=== PATIENT | female | born 1995 | race Caucasian/White ===

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

== ENCOUNTER 2017-03-11 20:39 | Emergency (ER) | payer OTHER ==
[~2017-03-11] VITALS: Ht 172.7 cm; Wt 88.1 kg
--- NOTE | 2017-03-11 21:22 | PHYS DOC ---
General Chief Complaint: NAUSEA/VOMITING/DIARRHEA Stated Complaint: ABD PAIN Time Seen by MD: 20:44 Source: patient Exam Limitations: no limitations Problems: History of Present Illness Initial Comments Patient is a 22-year-old female who comes to the ED complaining of lower abdominal discomfort and breast tenderness. Patient states that for the past several days she's had intermittent nausea but has had no vomiting or diarrhea. She has developed lower abdominal discomfort with urinary frequency and no dysuria or hematuria noted. She denies any vaginal discharge no dyspareunia all of her discomfort is located suprapubic no adnexal pain. She is unable to tell me with extensive questioning when her last menstrual period was. She is at this time 2 para 1 as her urine test is positive here in the emergency department. She does not take vitamins and has no mandrel puller as her last occurred during her teenage years. She had preeclampsia and her initial no other risks and no complications at-induced section due to her preeclamptic status. Appetite is intact no fever chills sweats or myalgias no flank discomfort patient admits to sexual activity with 2 individuals recently and is uncertain as to who may be a father. Timing/Duration: 24 hours Severity: mild Modifying Factors: worse with eating Associated Symptoms: malaise, nausea/vomiting Allergies: Coded Allergies: No Known Drug Allergies (Unverified , 03/11/17) Past Medical History Medical History: no pertinent history (preeclampsia, asthma) Surgical History: other ( section) Para: 1 : 2 LMP (Females 10-50): unknown Social History Smoker: non-smoker Alcohol: none Drugs: none Review of Systems Constitutional: denies chills, denies diaphoresis, denies fever, denies malaise Respiratory: denies cough, denies shortness of breath, denies wheezing Cardiovascular: denies chest pain, denies palpitations, denies syncope Gastrointestinal: see HPI Genitourinary: see HPI Musculoskeletal: denies back pain, denies joint swelling, denies neck pain Psychiatric/Neurological: denies headache, denies numbness, denies paresthesia Hematologic/Lymphatic: denies blood clots, denies easy bleeding, denies easy bruising Physical Exam General Appearance: WD/WN, no apparent distress Eyes: bilateral eye normal inspection, bilateral eye PERRL, bilateral eye EOMI ( and) Ear, Nose, Throat: hearing grossly normal, normal ENT inspection, normal pharynx Neck: non-tender, supple Respiratory: normal breath sounds, no respiratory distress Cardiovascular: normal peripheral pulses, regular rate, rhythm Gastrointestinal: soft (mild suprapubic tenderness no rebound guarding or masses noted, negative McBurney, negative Hess, bowel sounds normal uterus nonpalpable) Rectal: deferred Back: no CVA tenderness, no vertebral tenderness Extremities: normal range of motion, non-tender, normal inspection, no pedal edema Neurologic/Psychiatric: belt picker II-XII nml as tested, no motor/sensory deficits, alert, normal mood/affect, oriented x 3 Skin: normal color, warm/dry Orders, Labs, Meds Urine test is positive Urinalysis grossly positive for products of infection. I discussed findings with the patient and encouraged her to begin taking vitamins. Due to her high risk in the past I encouraged her to follow-up with OB as soon as possible. Contact information was given to her for Dr. Morelos and she was advised to call Monday to schedule next available appointment. Signs and symptoms to monitor and watch for were discussed and indications for urgent return to the department for also discussed. I answered her extensive questions and she expressed agreement and understanding of the treatment plan. See departure. Departure Time of Disposition: 21:49 Disposition: 01 HOME, SELF-CARE Diagnosis: incidental, UTI Condition: GOOD Patient Instructions: Diet - Hyperemesis Gravidarum, Hyperemesis Gravidarum, Medicines During Additional Instructions: Please review the patient education materials given by ED staff. Aggressive hydration with Gatorade and water. vitamins daily, take with food. Prescription: Zofran ODT, Macrobid You will need a follow-up with an mandrel puller. You may choose to follow-up with Dr. Morelos: ED staff will provide you with his contact information in written form. Call Monday to schedule next available appointment. Return to ED with new or changing symptoms. ROSA HUI DO Mar 11, 2017 21:22
[2017-03-11 21:43] LABS: BACTERIA,URINE FEW /HPF (0-FEW); BILIRUBIN,URINE NEG (NEG); CLARITY,URINE CLOUDY; COLOR,URINE YELLOW; GLUCOSE,URINE NEG (NEG); NITRITE,URINE NEG (NEG); SQUAMOUS EPITHELIAL CELL,UR OCC /LPF; UROBILINOGEN,URINE 0.2 mg/dL (0.2 mg/dL); WBC,URINE 20-40 /HPF (0-4)
[2017-03-11] MEDS ORDERED: ONDA4TAB10 PO (21:48)
[2017-03-11] MEDS ORDERED: NITR100C62 PO (21:48)
[2017-03-11] MEDS ORDERED: NITROFURANTOIN MONOHYD/M-CRYST 100 MG CAPSULE. PO ONE ×2 (21:55→22:15)
[2017-03-11] MEDS ORDERED: ONDANSETRON 4MG ODT 4TABLET STARTPACK. PO ONE (22:00)
[2017-03-11] MEDS ORDERED: ONDANSETRON ODT 4 MG TAB.RAPDIS PO ONE (22:00)
[2017-03-11 22:10] VITALS: BP 120/70
== END 2017-03-11 22:15 | disposition home or self-care (01) ==
LOC: ER 20:39
DX: N39.0 Urinary tract infection, site not specified (principal); J45.909 Unspecified asthma, uncomplicated; Z33.1 Pregnant state, incidental; Z98.890 Other specified postprocedural states
CPT/HCPCS: 81001; 81025; 87086; 99284; Q0162

== ENCOUNTER 2017-05-05 16:54 | Emergency (ER) | payer OTHER ==
[~2017-05-05] VITALS: Ht 172.7 cm; Wt 88.5 kg
[~2017-05-05 16:54] MED LIST: NITR100C62 PO; ONDA4TAB10 PO
[2017-05-05] MEDS ORDERED: ONDANSETRON ODT 4 MG TAB.RAPDIS ONE (17:20)
--- NOTE | 2017-05-05 17:20 | PHYS DOC ---
Past History Past Medical History: Asthma Past Surgical History: No Surgical History Alcohol Use: None Drug Use: None Adult General Chief Complaint Chief Complaint: VOMITING IN HPI HPI Patient is a 22 year old F who presents with nausea and vomiting during . Kelsey is 13 weeks along and his had multiple episodes of nausea and vomiting. She has been seen by her OB but was unable to be seen today in the clinic. She has been taking Zofran for nausea but is out of her medications currently. She denies pain or other symptoms. She has no other associated symptoms. She has no other exacerbating or alleviating factors. Review of Systems Review of Systems Constitutional: Denies fever or chills [] Eyes: Denies change in visual acuity, redness, or eye pain [] HENT: Denies nasal congestion or sore throat [] Respiratory: Denies cough or shortness of breath [] Cardiovascular: No additional information not addressed in HPI [] GI: Denies abdominal pain,bloody stools or diarrhea [] : Denies dysuria or hematuria [] Musculoskeletal: Denies back pain or joint pain [] Integument: Denies rash or skin lesions [] Neurologic: Denies headache, focal weakness or sensory changes [] Endocrine: Denies polyuria or polydipsia [] All other systems were reviewed and found to be within normal limits, except as documented in this note. Family History Family History No pertinent family history was reported Current Medications Current Medications Medications reviewed Allergies Allergies Allergies Coded Allergies Type Severity Reaction Last Updated Verified No Known Drug Allergies 05/05/17 No Physical Exam Physical Exam Constitutional: Well developed, well nourished, no acute distress, non-toxic appearance. [] HENT: Normocephalic, atraumatic, bilateral external ears normal, oropharynx moist, no oral exudates, nose normal. [] Eyes: PERRLA, EOMI, conjunctiva normal, no discharge. [] Neck: Normal range of motion, no tenderness, supple, no stridor. [] Cardiovascular:Heart rate regular rhythm, Lungs & Thorax: Bilateral breath sounds clear to auscultation [] Abdomen: Bowel sounds normal, soft, no tenderness, no masses, no pulsatile masses. [] Skin: Warm, dry, no erythema, no rash. [] Back: No tenderness, no CVA tenderness. [] Extremities: No tenderness, no cyanosis, no clubbing, ROM intact, no edema. [] Neurologic: Alert and oriented X 3, normal motor function, normal sensory function, no focal deficits noted. [] Psychologic: Affect normal, judgement normal, mood normal. [] Current Patient Data Vital Signs Vital Signs Date Time Temp Pulse Resp B/P (MAP) Pulse Ox O2 Delivery O2 Flow Rate FiO2 05/05/17 17:11 98.2 114 16 100 Room Air EKG EKG [] Radiology/Procedures Radiology/Procedures [] Course & Med Decision Making Course & Med Decision Making Pertinent Labs and Imaging studies reviewed. (See chart for details) Her symptoms did improve with ODT Zofran. She was able tolerate oral fluids prior to discharge. Dragon Disclaimer Dragon Disclaimer This electronic medical record was generated, in whole or in part, using a voice recognition dictation system. Departure Departure: Impression: Primary Impression: Hyperemesis gravidarum Disposition: HOME, SELF-CARE Condition: STABLE Referrals: PCP,NO (PCP) Patient Instructions: Hyperemesis Gravidarum Additional Instructions: Kelsey was seen in the emergency department for nausea and vomiting. No emergency medical condition was found on history or physical exam. Her symptoms are treated and she was able to tolerate oral fluids. She was given a prescription for nausea medication and advised follow-up with her primary care doctor as soon as possible for further management. Scripts Ondansetron (ZOFRAN ODT) 4 Mg Tab.rapdis 1 TAB SL Q8HRS, #15 TAB Prov: SILVIA MARINO MD 05/05/17 SILVIA MARINO MD May 05, 2017 17:20
[2017-05-05] MEDS ORDERED: ONDANSETRON ODT 4 MG TAB.RAPDIS PO ONE (17:30)
[2017-05-05] MEDS ORDERED: ONDA4TAB10 SL (18:02)
[2017-05-05 18:08] VITALS: BP 134/88
== END 2017-05-05 18:09 | disposition home or self-care (01) ==
LOC: ER 16:54
DX: O21.0 Mild hyperemesis gravidarum (principal); O99.511 Diseases of the respiratory system complicating pregnancy, first trimester; J45.909 Unspecified asthma, uncomplicated; Z3A.13 13 weeks gestation of pregnancy
CPT/HCPCS: 99283; Q0162

== ENCOUNTER → 2017-06-06 | Outpatient (CLI) | payer OTHER ==
[~2017-06-06] MED LIST changes: +ONDA4TAB10 SL
--- NOTE | 2017-06-06 14:13 | RAD ---
Indication: survey. Technique: Grayscale, color Doppler and spectral waveform ultrasound images of the pelvis. Comparison: None Findings: The cervix measures 5.2 cm gland and is within normal limits. Single intrauterine is noted in cephalic presentation. Placenta is anterior wall in origin. The biparietal diameter measures 4.1 cm corresponding to gestation age of 8 weeks 3 day. The head circumference measures 15.6 cm corresponding gestational age of 18 weeks 3 days. Femoral length measures 2.7 cm corresponding was a suspicion a of 18 weeks 2 days. Abdominal circumference measures 12.4 cm corresponding to gestation age of 18 weeks 0 days. Amniotic fluid index measures 15.1 cm and is within normal limits. Three-vessel cord is visualized. Bladder, stomach, spine, upper extremities, lower extremities, kidneys, nose, lips, four-chamber heart are the visualized. Cardiac activity is demonstrated at the rate of 147 bpm. Estimated weight of 229 g. Estimated due date 11/11/2017. Impression: Single viable intrauterine with gestational age of 18 weeks 2 days and due date of 11/05/2017.
== END | disposition home or self-care (01) ==
LOC: US 10:54
DX: Z34.92 Encounter for supervision of normal pregnancy, unspecified, second trimester (principal); Z3A.18 18 weeks gestation of pregnancy
CPT/HCPCS: 76805

== ENCOUNTER 2017-11-25 18:52 | Emergency (ER) | payer OTHER ==
[~2017-11-25] VITALS: Ht 172.7 cm; Wt 92.0 kg
[2017-11-25 18:52] VITALS: BP 153/92
--- NOTE | 2017-11-25 19:18 | PHYS DOC ---
Past History Past Medical History: Asthma Past Surgical History: No Surgical History Alcohol Use: None Drug Use: None Adult General Chief Complaint Chief Complaint: SKIN RASH/ABSCESS HPI HPI 22-year-old female presents with rash. The patient was at her mom's house 2 days ago was out in the backyard. Her father mentioned that he got poison perla several days ago. Later on that evening she started to notice some small bumps on her upper thighs. By the time she woke up the next morning she had large patches of vesicular rash on her thighs and lower legs and arms. It is intensely pruritic and the vesicles are draining serous fluid. Patient has been trying calamine lotion. She has a known high sensitivity to poison perla. Denies any difficulty breathing. She does not have any lesions on her face. There are couple small areas on her neck. Her abdomen and buttocks which were covered do not have any lesions. She recently had a baby, but she is not breast-feeding. She is not diabetic. Review of Systems Review of Systems Constitutional: Denies fever or chills [] Eyes: Denies change in visual acuity, redness, or eye pain [] HENT: Denies nasal congestion or sore throat [] Respiratory: Denies cough or shortness of breath [] Cardiovascular: No additional information not addressed in HPI [] GI: Denies abdominal pain, nausea, vomiting, bloody stools or diarrhea [] : Denies dysuria or hematuria [] Musculoskeletal: Denies back pain or joint pain [] Integument: Rash [] Neurologic: Denies headache, focal weakness or sensory changes [] Endocrine: Denies polyuria or polydipsia [] All other systems were reviewed and found to be within normal limits, except as documented in this note. Allergies Allergies Allergies Coded Allergies Type Severity Reaction Last Updated Verified No Known Drug Allergies 05/05/17 No Physical Exam Physical Exam Constitutional: Well developed, well nourished, no acute distress, non-toxic appearance. [] HENT: Normocephalic, atraumatic, bilateral external ears normal, oropharynx moist, no oral exudates, nose normal. [] Eyes: PERRLA, EOMI, conjunctiva normal, no discharge. [] Neck: Normal range of motion, no tenderness, supple, no stridor. [] Cardiovascular:Heart rate regular rhythm, no murmur [] Lungs & Thorax: Bilateral breath sounds clear to auscultation [] Abdomen: Bowel sounds normal, soft, no tenderness, no masses, no pulsatile masses. [] Skin: Diffuse erythematous patches with vesicular lesions on the her thighs, lower legs, arms, and neck. The vesicles are weeping a serous fluid. [] Back: No tenderness, no CVA tenderness. [] Extremities: No tenderness, no cyanosis, no clubbing, ROM intact, no edema. [] Neurologic: Alert and oriented X 3, normal motor function, normal sensory function, no focal deficits noted. [] Psychologic: Affect normal, judgement normal, mood normal. [] EKG EKG [] Radiology/Procedures Radiology/Procedures [] Course & Med Decision Making Course & Med Decision Making Pertinent Labs and Imaging studies reviewed. (See chart for details) We will give the patient 125 Solu-Medrol in the ED and an Rx for 14 days of prednisone. [] Dragon Disclaimer Dragon Disclaimer This electronic medical record was generated, in whole or in part, using a voice recognition dictation system. Departure Departure: Referrals: PCP,NO (PCP) GUS RAUSCH DO Nov 25, 2017 19:18
[2017-11-25] MEDS ORDERED: methylPREDNISolone SOD SUCC PF 125 MG/2 ML VIAL. IM ONE (19:30)
[2017-11-25] MEDS ORDERED: PRED-220 PO (19:30)
== END 2017-11-25 19:40 | disposition home or self-care (01) ==
LOC: ER 18:52
DX: L98.8 Other specified disorders of the skin and subcutaneous tissue (principal); R21 Rash and other nonspecific skin eruption; L29.9 Pruritus, unspecified; J45.909 Unspecified asthma, uncomplicated
CPT/HCPCS: 96372; 99283; J2930

== ENCOUNTER 2018-06-24 18:30 | Emergency (ER) | payer OTHER ==
[~2018-06-24] VITALS: Ht 172.7 cm; Wt 92.0 kg
[~2018-06-24 18:30] MED LIST changes: +PRED-220 PO
[2018-06-24 18:45] VITALS: BP 149/91
[2018-06-24] MEDS ORDERED: predniSONE 20 MG TABLET PO ONE (19:00)
[2018-06-24] MEDS ORDERED: PRED-220 PO (19:09)
--- NOTE | 2018-06-24 19:09 | PHYS DOC ---
Past History Past Medical History: Asthma Past Surgical History: No Surgical History Alcohol Use: None Drug Use: None Adult General Chief Complaint Chief Complaint: UPPER EXTREMITY INJURY HPI HPI 23-year-old female presents with left shoulder pain. The patient works on an as a midline at night. She was switched over to a much faster line yesterday and by the end of her shift she had left lateral shoulder pain with radiation down past her elbow and into her hands. She was unable to sleep on her left side due to a feeling of numbness going into her hands. She denies trauma. She did not fall. 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 She came in because she was concerned about the numbness feeling going into her fingers could be a sign of a more serious injury. She denies fever or chills. She has no previous shoulder injuries. Review of Systems Review of Systems Constitutional: Denies fever or chills [] Eyes: Denies change in visual acuity, redness, or eye pain [] HENT: Denies nasal congestion or sore throat [] Respiratory: Denies cough or shortness of breath [] Cardiovascular: No additional information not addressed in HPI [] GI: Denies abdominal pain, nausea, vomiting, bloody stools or diarrhea [] : Denies dysuria or hematuria [] Musculoskeletal: Left shoulder pain [] Integument: Denies rash or skin lesions [] Neurologic: Denies headache, focal weakness or sensory changes [] Endocrine: Denies polyuria or polydipsia [] All other systems were reviewed and found to be within normal limits, except as documented in this note. Allergies Allergies Allergies Coded Allergies Type Severity Reaction Last Updated Verified diphenhydramine Allergy Unknown 06/24/18 Yes Physical Exam Physical Exam Constitutional: Well developed, well nourished, no acute distress, non-toxic appearance. [] HENT: Normocephalic, atraumatic, bilateral external ears normal, oropharynx moist, no oral exudates, nose normal. [] Eyes: PERRLA, EOMI, conjunctiva normal, no discharge. [] Neck: Normal range of motion, no tenderness, supple, no stridor. [] Cardiovascular:Heart rate regular rhythm, no murmur [] Lungs & Thorax: Bilateral breath sounds clear to auscultation [] Abdomen: Bowel sounds normal, soft, no tenderness, no masses, no pulsatile masses. [] Skin: Warm, dry, no erythema, no rash. [] Back: No tenderness, no CVA tenderness. [] Extremities: No left shoulder appears superior compared right, tenderness in the supraspinatus distribution. Strength 5 out of 5, but with pain. The numbness symptoms are reproducible with palpation of the left first rib.[] Neurologic: Alert and oriented X 3, normal motor function, normal sensory function, no focal deficits noted. [] Psychologic: Affect normal, judgement normal, mood normal. [] Current Patient Data Vital Signs Vital Signs Date Time Temp Pulse Resp B/P (MAP) Pulse Ox O2 Delivery O2 Flow Rate FiO2 06/24/18 18:45 98.2 116 18 100 Room Air EKG EKG [] Radiology/Procedures Radiology/Procedures [] Course & Med Decision Making Course & Med Decision Making Pertinent Labs and Imaging studies reviewed. (See chart for details) The patient has been overuse strain of her left shoulder. Specifically I believe her first troponin is elevated and impinging on her brachial plexus. I will treat her with prednisone for 5 days. She has the next couple days off to rest. She is stable for discharge at this time. [] Dragon Disclaimer Dragon Disclaimer This electronic medical record was generated, in whole or in part, using a voice recognition dictation system. Departure Departure: Impression: Primary Impression: Left shoulder strain Disposition: 01 HOME, SELF-CARE Condition: STABLE Referrals: PCP,UNKNOWN (PCP) Patient Instructions: Shoulder Exercises, Generic, SportsMed Scripts Prednisone (PREDNISONE) 10 Mg Tablet 50 MG PO DAILY for inflammation for 4 Days, #20 TAB Prov: GUS RAUSCH DO 06/24/18 Problem Qualifiers Primary Impression: Left shoulder strain Encounter type: initial encounter Qualified Codes: S46.912A - Strain of unspecified muscle, fascia and tendon at shoulder and upper arm level, left arm , initial encounter GUS RAUSCH DO Jun 24, 2018 19:09
== END 2018-06-24 19:19 | disposition home or self-care (01) ==
LOC: ER 18:30
DX: S46.912A Strain of unspecified muscle, fascia and tendon at shoulder and upper arm level, left arm, initial encounter (principal); J45.909 Unspecified asthma, uncomplicated; Z88.8 Allergy status to other drugs, medicaments and biological substances; X50.9XXA Other and unspecified overexertion or strenuous movements or postures, initial encounter; Y93.89 Activity, other specified; Y92.89 Other specified places as the place of occurrence of the external cause; Y99.0 Civilian activity done for income or pay
CPT/HCPCS: 99283; J7512

== ENCOUNTER 2018-10-31 23:06 | Emergency (ER) | payer OTHER ==
[~2018-10-31] VITALS: Ht 172.7 cm; Wt 89.6 kg
[2018-10-31 23:06] VITALS: BP 138/92
[2018-11-01] MEDS ORDERED: SULF1TAB24 PO (00:12)
--- NOTE | 2018-11-01 00:12 | PHYS DOC ---
Past History Past Medical History: Asthma Past Surgical History: No Surgical History Alcohol Use: None Drug Use: None Adult General Chief Complaint Chief Complaint: SKIN RASH/ABSCESS [facility] HPI Patient is a 23-year-old female who presents with complaint of tender swollen area behind her ear that has been present for the last couple of days. Patient states that it scares her because she looked on the Internet and thought that it could be a tumor. She denies any fever. She denies any drainage from the area.[] Review of Systems Review of Systems Constitutional: Denies fever or chills [] Respiratory: Denies cough or shortness of breath [] Cardiovascular: No additional information not addressed in HPI [] GI: Denies abdominal pain, nausea, vomiting, bloody stools or diarrhea [] Integument: Positive tender swollen behind right ear[] Allergies Allergies Allergies Coded Allergies Type Severity Reaction Last Updated Verified diphenhydramine Allergy Unknown 06/24/18 Yes Physical Exam Physical Exam Constitutional: Well developed, well nourished, no acute distress, non-toxic appearance. [] HENT: Normocephalic, atraumatic, there is an area of swelling behind the right ear, nodular and tender, consistent with lymphadenitis. [] Neck: Normal range of motion, no tenderness, supple, no stridor. [] Cardiovascular:Heart rate regular rhythm, no murmur [] Lungs & Thorax: Bilateral breath sounds clear to auscultation [] EKG EKG [] Radiology/Procedures Radiology/Procedures [] Course & Med Decision Making Course & Med Decision Making Pertinent Labs and Imaging studies reviewed. (See chart for details) [] Dragon Disclaimer Dragon Disclaimer This electronic medical record was generated, in whole or in part, using a voice recognition dictation system. Departure Departure: Impression: Primary Impression: Lymphadenitis Disposition: 01 HOME, SELF-CARE Condition: STABLE Referrals: NON,STAFF (PCP) Patient Instructions: Cervical Adenitis Scripts Sulfamethoxazole/Trimethoprim (BACTRIM DS TABLET) 1 Each Tablet 1 TAB PO BID for infection, #20 TAB Prov: JUN HENDERSON Jr. DO 11/01/18 JUN HENDERSON Jr. DO Nov 01, 2018 00:12
[2018-11-01] MEDS ORDERED: SMZ/TMP 800/160MG TABLET. PO ONE (00:30)
== END 2018-11-01 00:42 | disposition home or self-care (01) ==
LOC: ER 23:06
DX: I88.9 Nonspecific lymphadenitis, unspecified (principal); J45.909 Unspecified asthma, uncomplicated; Z88.8 Allergy status to other drugs, medicaments and biological substances
CPT/HCPCS: 99283

== ENCOUNTER 2019-01-24 22:02 | Emergency (ER) | payer OTHER ==
[~2019-01-24] VITALS: Ht 170.2 cm; Wt 81.2 kg
[~2019-01-24 22:02] MED LIST changes: +SULF1TAB24 PO
[2019-01-24 22:05] VITALS: BP 135/80
[2019-01-24] MEDS ORDERED: PERM60CR12 TP (22:27)
[2019-01-24] MEDS ORDERED: METH4TAB2 PO (22:27)
--- NOTE | 2019-01-24 23:52 | PHYS DOC ---
Past History Past Medical History: Asthma, Hypertension, Other Past Surgical History: No Surgical History Alcohol Use: None Drug Use: None Adult General Chief Complaint Chief Complaint: SKIN RASH/ABSCESS HPI HPI Patient is a 23 YO F WITH CC OF SKIN RASH. PATIENT HAS RASH ON BOTH LEGS AND ARMS WELL. HAS BEEN WEEDING AND MOWING THINKS IT IS POISON BETO NO NEW EXPOSURES OTHERWISE NO CONTACTS WITH THE RASH IT IS VERY ITCHY Review of Systems Review of Systems Constitutional: Denies fever or chills [] Eyes: Denies change in visual acuity, redness, or eye pain [] HENT: Denies nasal congestion or sore throat [] Respiratory: Denies cough or shortness of breath [] Cardiovascular: No additional information not addressed in HPI [] GI: Denies abdominal pain, nausea, vomiting, bloody stools or diarrhea [] All other systems were reviewed and found to be within normal limits, except as documented in this note. Allergies Allergies Allergies Coded Allergies Type Severity Reaction Last Updated Verified diphenhydramine Allergy Unknown 06/24/18 Yes Physical Exam Physical Exam Constitutional: Well developed, well nourished, no acute distress, non-toxic appearance. [] HENT: Normocephalic, atraumatic, bilateral external ears normal, oropharynx moist, no oral exudates, nose normal. [] Eyes: PERRLA, EOMI, conjunctiva normal, no discharge. [] Neck: Normal range of motion, no tenderness, supple, no stridor. [] Skin: THERE IS MACULOPAPULAR RASH NOTED ON THE ANTERIOR LEGS , ALSO LINEAR RAISED LESIONS NOTED ON THE LEFT UPPER ARM WELL INTERDIGITAL AREA ON RIGHT HAND. Back: No tenderness, no CVA tenderness. [] Extremities: No tenderness, no cyanosis, no clubbing, ROM intact, no edema. [] Neurologic: Alert and oriented X 3, normal motor function, normal sensory function, no focal deficits noted. [] Psychologic: Affect normal, judgement normal, mood normal. [] Current Patient Data Vital Signs Vital Signs Date Time Temp Pulse Resp B/P (MAP) Pulse Ox O2 Delivery O2 Flow Rate FiO2 01/24/19 22:05 98.6 87 18 100 Room Air Lab Results ne Temperature (Fahrenheit): * 98.6 degrees F (97.6-99.5) Patient Temperature * 98.6 degrees F (97.5-99.5) Temperature Source * Oral Blood Pressure Systolic * 135 mm Hg (100-140) Blood Pressure Diastolic * 80 mm Hg (60-100) Blood Pressure Mean * 98 mm Hg Blood Pressure Location * Right Arm Blood Pressure Source * Automatic Cuff Pulse Rate * 87 beats per minute (60-90) Pulse Assessment Method * Monitor Respiratory Rate * 18 breaths per minute (12-24) Oxygen Delivery Method * Room Air EKG EKG [] Radiology/Procedures Radiology/Procedures [] Course & Med Decision Making Course & Med Decision Making Pertinent Labs and Imaging studies reviewed. (See chart for details) RASH PROBABLY POISON BETO COULD BE SCABIES GIVEN UPPER EXTREMITY APPEARANCE. TRY PREDNISONE AND PERMETHRIN Dragon Disclaimer Dragon Disclaimer This electronic medical record was generated, in whole or in part, using a voice recognition dictation system. Departure Departure: Impression: Primary Impression: Dermatitis Disposition: HOME, SELF-CARE Condition: STABLE Referrals: PCP,UNKNOWN (PCP) Patient Instructions: Contact Dermatitis, [id number] Scripts Methylprednisolone (MEDROL) 4 Mg Tab.ds.pk 1 PKG PO UD for RASH, #1 PKG Prov: NICOLE LEONARD MD 01/24/19 Permethrin (PERMETHRIN) 60 Gm Cream..g. 1 FELISA TP ONCE for RASH, #60 GM 1 Refill Prov: NICOLE LEONARD MD 01/24/19 NICOLE LEONARD MD Jan 24, 2019 23:52
== END 2019-01-24 23:05 | disposition home or self-care (01) ==
LOC: ER 22:02
DX: L30.9 Dermatitis, unspecified (principal); J45.909 Unspecified asthma, uncomplicated; I10 Essential (primary) hypertension; Z88.8 Allergy status to other drugs, medicaments and biological substances
CPT/HCPCS: 99283

== ENCOUNTER 2019-09-07 08:25 | Emergency (ER) | payer OTHER ==
[~2019-09-07] VITALS: Ht 170.2 cm; Wt 96.0 kg
[~2019-09-07 08:25] MED LIST changes: +METH4TAB2 PO; +PERM60CR12 TP
[2019-09-07 08:30] VITALS: BP 150/70
[2019-09-07] MEDS ORDERED: TRIA15CR2 TP (09:05)
--- NOTE | 2019-09-07 09:05 | PHYS DOC ---
Past History Past Medical History: No Pertinent History Past Surgical History: No Surgical History Alcohol Use: None Drug Use: None General Adult EDM: Chief Complaint: SKIN PROBLEM HPI: HPI: 24-year-old female presents with rash. She first noticed this rash this morning. She has scattered areas on her right leg, bilateral forearms, nose and near her right eye. It is pruritic. It is mildly erythematous and has a vesicular look. The patient has some allergies, but denies any new contacts or any change in cosmetics. She does have 2 dogs that go outside. She is sensitive to poison perla. She has not been around any poison perla as far she knows. She denies fever chills. She is having no difficulty breathing or swallowing. Review of Systems: Review of Systems: Constitutional: Denies fever or chills Eyes: Denies change in visual acuity HENT: Denies nasal congestion or sore throat Respiratory: Denies cough or shortness of breath Cardiovascular: Denies chest pain or edema GI: Denies abdominal pain, nausea, vomiting, bloody stools or diarrhea : Denies dysuria Musculoskeletal: Denies back pain or joint pain Integument: Rash Neurologic: Denies headache, focal weakness or sensory changes Endocrine: Denies polyuria or polydipsia Lymphatic: Denies swollen glands Psychiatric: Denies depression or anxiety Heart Score: Risk Factors: Risk Factors: DM, Current or recent (<one month) smoker, HTN, HLP, family history of CAD, obesity. Risk Scores: Score 0 - 3: 2.5% MACE over next 6 weeks - Discharge Home Score 4 - 6: 20.3% MACE over next 6 weeks - Admit for Clinical Observation Score 7 - 10: 72.7% MACE over next 6 weeks - Early Invasive Strategies Allergies: Allergies: Allergies Coded Allergies Type Severity Reaction Last Updated Verified diphenhydramine Allergy Unknown 06/24/18 Yes Physical Exam: PE: Constitutional: Well developed, well nourished, no acute distress, non-toxic appearance. [] HENT: Normocephalic, atraumatic, bilateral external ears normal, oropharynx moist, no oral exudates, nose normal. [] Eyes: PERRLA, EOMI, conjunctiva normal, no discharge. [] Neck: Normal range of motion, no tenderness, supple, no stridor. [] Cardiovascular: Heart rate regular rhythm, no murmur [] Lungs & Thorax: Bilateral breath sounds clear to auscultation [] Abdomen: Bowel sounds normal, soft, no tenderness, no masses, no pulsatile masses. [] Skin: Scattered vesicular rash and small patches on her right leg, bilateral forearms, nose and upper right eye area [] Back: No tenderness, no CVA tenderness. [] Extremities: No tenderness, no cyanosis, no clubbing, ROM intact, no edema. [] Neurologic: Alert and oriented X 3, normal motor function, normal sensory function, no focal deficits noted. [] Psychologic: Affect normal, judgement normal, mood normal. [] Current Patient Data: Vital Signs: Vital Signs Date Time Temp Pulse Resp B/P (MAP) Pulse Ox O2 Delivery O2 Flow Rate FiO2 09/07/19 08:30 98.2 84 18 150/70 (96) 100 Room Air EKG: EKG: [] Radiology/Procedures: Radiology/Procedures: [] Course & Med Decision Making: Course & Med Decision Making Pertinent Labs and Imaging studies reviewed. (See chart for details) The patient's rash actually looks like poison perla. It is some form of contact dermatitis. I will give her 8mg of Decadron PO as well as a prescription for topical 0.1% triamcinolone. She is stable for discharge at this time. [] Rajat Disclaimer: Rajat Disclaimer: This electronic medical record was generated, in whole or in part, using a voice recognition dictation system. Departure Departure: Impression: Primary Impression: Contact dermatitis Qualified Codes: L25.9 - Unspecified contact dermatitis, unspecified cause Disposition: 01 HOME, SELF-CARE Condition: STABLE Referrals: PCP,NO (PCP) Patient Instructions: Contact Dermatitis, [id number] Scripts Triamcinolone Acetonide (TRIAMCINOLONE ACETONIDE) 15 Gm Cream..g. 1 FELISA TP BID for rash, #30 GM 0.1% Prov: GUS RAUSCH DO 09/07/19 GUS RAUSCH DO Sep 07, 2019 09:05
[2019-09-07] MEDS ORDERED: DEXAMETHASONE 4 MG TABLET ONE (09:12)
[2019-09-07] MEDS ORDERED: DEXAMETHASONE 4 MG TABLET PO ONE (09:15)
== END 2019-09-07 09:14 | disposition home or self-care (01) ==
LOC: ER 08:25
DX: L25.9 Unspecified contact dermatitis, unspecified cause (principal); Z88.8 Allergy status to other drugs, medicaments and biological substances
CPT/HCPCS: 99283; J8540

== ENCOUNTER 2019-09-10 21:18 | Emergency (ER) | payer OTHER ==
[~2019-09-10] VITALS: Ht 170.2 cm; Wt 96.0 kg
[~2019-09-10 21:18] MED LIST changes: +TRIA15CR2 TP
[2019-09-10 21:20] VITALS: BP 130/87
[2019-09-10] MEDS ORDERED: MUPI22OI2 TP (21:43)
[2019-09-10] MEDS ORDERED: PRED-220 PO (21:43)
--- NOTE | 2019-09-10 21:44 | PHYS DOC ---
Past History Past Medical History: No Pertinent History Past Surgical History: No Surgical History Alcohol Use: None Drug Use: None Adult General Chief Complaint Chief Complaint: SKIN PROBLEM HPI HPI Patient is a 24 year old female who presents with complaint of skin rash. The patient was seen in the emergency department on September 07, 2019 with similar complaint. Patient was diagnosed with contact dermatitis. Was treated with one-time dose of IM Decadron and discharged with prescription for triamcinolone. Patient states that despite treatment, she has been having worsening rash and symptoms present on her right forearm. Notes that it is burning and weeping. Notes surrounding redness near the areas of blisters. Denies any lymphangitic streaking, fever, or nausea. Because of worsening symptoms the patient came to the emergency department for reevaluation. Review of Systems Review of Systems Constitutional: Denies fever or chills [] Eyes: Denies change in visual acuity, redness, or eye pain [] HENT: Denies nasal congestion or sore throat [] Respiratory: Denies cough or shortness of breath [] Cardiovascular: No additional information not addressed in HPI [] GI: Denies abdominal pain, nausea, vomiting, bloody stools or diarrhea [] : Denies dysuria or hematuria [] Musculoskeletal: Denies back pain or joint pain [] Integument: Skin rash [] Neurologic: Denies headache, focal weakness or sensory changes [] All other systems were reviewed and found to be within normal limits, except as documented in this note. Allergies Allergies Allergies Coded Allergies Type Severity Reaction Last Updated Verified diphenhydramine Allergy Unknown 06/24/18 Yes Physical Exam Physical Exam Constitutional: Well developed, well nourished, no acute distress, non-toxic appearance. [] HENT: Normocephalic, atraumatic, bilateral external ears normal, oropharynx moist, no oral exudates, nose normal. [] Eyes: PERRLA, EOMI, conjunctiva normal, no discharge. [] Neck: Normal range of motion, no tenderness, supple, no stridor. [] Cardiovascular:Heart rate regular rhythm, no murmur [] Lungs & Thorax: Bilateral breath sounds clear to auscultation [] Abdomen: Bowel sounds normal, soft, no tenderness, no masses, no pulsatile masses. [] Skin: Warm, dry, vesicular rash present on the right forearm with surrounding erythema, nonindurated, no lymphangitic streaking present. [] Back: No tenderness, no CVA tenderness. [] Extremities: No tenderness, no cyanosis, no clubbing, ROM intact, no edema. [] Neurologic: Alert and oriented X 3, normal motor function, normal sensory function, no focal deficits noted. [] Current Patient Data Vital Signs Vital Signs Date Time Temp Pulse Resp B/P (MAP) Pulse Ox O2 Delivery O2 Flow Rate FiO2 09/10/19 21:20 98.8 72 18 130/87 (101) 100 Room Air Lab Results Not performed EKG EKG Not performed [] Radiology/Procedures Radiology/Procedures Not performed [] Course & Med Decision Making Course & Med Decision Making Pertinent Labs and Imaging studies reviewed. (See chart for details) The patient's examination shows worsening rash to the right forearm that continues to appear consistent with contact dermatitis. The patient was ordered to stop application of triamcinolone cream. Patient given loading dose of oral prednisone in the emergency department and will continue on prednisone taper. Patient also prescribed Bactroban ointment for treatment of open blisters to reduce risk of secondary bacterial infection. Advised follow-up in 2 to 3 days with primary doctor for reevaluation and return to the emergency department for any worsening symptoms. Patient voiced understanding and agreement with treatment plan. [] Dragon Disclaimer Dragon Disclaimer This electronic medical record was generated, in whole or in part, using a voice recognition dictation system. Departure Departure: Impression: Primary Impression: Contact dermatitis Disposition: 01 HOME, SELF-CARE Condition: STABLE Referrals: PCP,NO (PCP) Patient Instructions: Contact Dermatitis Additional Instructions: Follow-up with a primary care physician in the next 2 to 3 days for reevalua tion. Return to the emergency department for any worsening symptoms. Scripts Mupirocin (MUPIROCIN) 22 Gm Oint...g. 1 FELISA TP TID, #22 GM Prov: VIK PURVIS MD 09/10/19 Prednisone (PREDNISONE) 10 Mg Tablet 10 MG PO UD for PREDNISONE TAPER, #39 TAB 0 Refills Take 3 tablets by mouth twice a day for 3 days, then take 2 tablets by mouth twice a day for 3 days, then take 1 tablet by mouth twice a day for 3 days, then take 1 tablet by mouth daily x 3 days, then stop. Prov: VIK PURVIS MD 09/10/19 Problem Qualifiers Primary Impression: Contact dermatitis Contact dermatitis type: unspecified Contact dermatitis trigger: unspecified trigger Qualified Codes: L25.9 - Unspecified contact dermatitis, unspecified cause VIK PURVIS MD Sep 10, 2019 21:44
[2019-09-10] MEDS ORDERED: predniSONE 20 MG TABLET PO ONE (22:00)
== END 2019-09-10 21:50 | disposition home or self-care (01) ==
LOC: ER 21:18
DX: L25.9 Unspecified contact dermatitis, unspecified cause (principal); Z88.8 Allergy status to other drugs, medicaments and biological substances
CPT/HCPCS: 99283; J7512

== ENCOUNTER 2020-10-27 19:06 | Emergency (ER) | payer OTHER ==
[~2020-10-27] VITALS: Ht 170.2 cm; Wt 97.9 kg
[~2020-10-27 19:06] MED LIST changes: +MUPI22OI2 TP
[2020-10-27 19:13] VITALS: BP 136/89
--- NOTE | 2020-10-27 19:27 | PHYS DOC ---
Past History Past Medical History: Asthma Past Surgical History: No Surgical History Alcohol Use: None Drug Use: None General Adult EDM: Chief Complaint: FOOT INJURY PAIN HPI: HPI: 25-year-old female presents with left lateral foot pain. Patient has been having pain on and off in this foot for a couple months. She presents tonight because has been more painful last couple of days and she is tired of it. She does not remember any particular injury. Is point tender along the lateral edge of the foot. She is able to walk. She has no other complaints at this time. Review of Systems: Review of Systems: Constitutional: Denies fever or chills Eyes: Denies change in visual acuity HENT: Denies nasal congestion or sore throat Respiratory: Denies cough or shortness of breath Cardiovascular: Denies chest pain or edema GI: Denies abdominal pain, nausea, vomiting, bloody stools or diarrhea : Denies dysuria Musculoskeletal: Left foot pain Integument: Denies rash Neurologic: Denies headache, focal weakness or sensory changes Endocrine: Denies polyuria or polydipsia Lymphatic: Denies swollen glands Psychiatric: Denies depression or anxiety Allergies: Allergies: Allergies Coded Allergies Type Severity Reaction Last Updated Verified diphenhydramine Allergy Unknown 06/24/18 Yes Physical Exam: PE: Constitutional: Well developed, well nourished, no acute distress, non-toxic appearance. [] HENT: Normocephalic, atraumatic, bilateral external ears normal, oropharynx moist, no oral exudates, nose normal. [] Eyes: PERRLA, EOMI, conjunctiva normal, no discharge. [] Neck: Normal range of motion, no tenderness, supple, no stridor. [] Cardiovascular:Heart rate regular rhythm, no murmur [] Lungs & Thorax: Bilateral breath sounds clear to auscultation [] Abdomen: Bowel sounds normal, soft, no tenderness, no masses, no pulsatile masses. [] Skin: Warm, dry, no erythema, no rash. [] Back: No tenderness, no CVA tenderness. [] Extremities: Tenderness along the fifth metatarsal bone left foot [] Neurologic: Alert and oriented X 3, normal motor function, normal sensory function, no focal deficits noted. [] Psychologic: Affect normal, judgement normal, mood normal. [] Current Patient Data: Vital Signs: Vital Signs Date Time Temp Pulse Resp B/P (MAP) Pulse Ox O2 Delivery O2 Flow Rate FiO2 10/27/20 19:13 98.1 100 16 136/89 (105) 100 Room Air EKG: EKG: [] Radiology/Procedures: Radiology/Procedures: [] Impressions: Examination: 3 views of the left foot HISTORY: History of fifth metatarsal pain COMPARISON: None available. FINDINGS: The alignment of the tarsal bones, tarsometatarsal joints, interphalangeal joints grossly appears unremarkable. No acute fracture or dislocation identified IMPRESSION: No acute osseous findings. Electronically signed by: Darrin Lambert MD (10/27/2020 7:47 PM) [id number] DICTATED AND SIGNED BY: DARRIN LAMBERT MD DATE: 10/27/201941 CC: GUS RAUSCH DO; PCP,NO ~MTH0 0 Heart Score: C/O Chest Pain: N/A Risk Factors: Risk Factors: DM, Current or recent (<one month) smoker, HTN, HLP, family history of CAD, obesity. Risk Scores: Score 0 - 3: 2.5% MACE over next 6 weeks - Discharge Home Score 4 - 6: 20.3% MACE over next 6 weeks - Admit for Clinical Observation Score 7 - 10: 72.7% MACE over next 6 weeks - Early Invasive Strategies Course & Med Decision Making: Course & Med Decision Making Pertinent Labs and Imaging studies reviewed. (See chart for details) The patient's x-ray is negative for fracture. This just appears to be a soft tissue injury or sprain. I have advised supportive care. She is stable for discharge at this time. [] Dragon Disclaimer: Draggrupo Disclaimer: This electronic medical record was generated, in whole or in part, using a voice recognition dictation system. Departure Departure: Impression: Primary Impression: Sprain of left foot Qualified Codes: S93.602A - Unspecified sprain of left foot, initial encounter Disposition: HOME / SELF CARE / HOMELESS Condition: STABLE Referrals: PCP,NO (PCP) Patient Instructions: Foot Sprain-Brief GUS RAUSCH DO Oct 27, 2020 19:26
--- NOTE | 2020-10-27 19:50 | RAD ---
Examination: 3 views of the left foot HISTORY: History of fifth metatarsal pain COMPARISON: None available. FINDINGS: The alignment of the tarsal bones, tarsometatarsal joints, interphalangeal joints grossly appears unr emarkable. No acute fracture or dislocation identified IMPRESSION: No acute osseous findings. Electronically signed by: Darrin Lambert MD (10/27/2020 7:47 PM) [id number]
== END 2020-10-27 20:38 | disposition home or self-care (01) ==
LOC: ER 19:06
DX: S93.602A Unspecified sprain of left foot, initial encounter (principal); J45.909 Unspecified asthma, uncomplicated; Z88.8 Allergy status to other drugs, medicaments and biological substances; X58.XXXA Exposure to other specified factors, initial encounter; Y93.89 Activity, other specified; Y92.89 Other specified places as the place of occurrence of the external cause; Y99.8 Other external cause status
CPT/HCPCS: 73630; 99283

== ENCOUNTER 2021-01-24 19:00 | Emergency (ER) | payer OTHER ==
[~2021-01-24] VITALS: Ht 170.2 cm; Wt 95.0 kg
[2021-01-24] MEDS ORDERED: LIDO:MAALOX 1:1 20 ML SINGLE DOSE. PO ONE (19:45)
[2021-01-24 19:52] VITALS: BP 158/75
--- NOTE | 2021-01-24 19:52 | PHYS DOC ---
Past History Past Medical History: Asthma Past Surgical History: No Surgical History Alcohol Use: None Drug Use: None Adult General Chief Complaint Chief Complaint: CHEST PAIN HPI HPI Patient is an otherwise healthy 25-year-old female who presents with a chief complaint of sharp burning chest pain just behind her sternum has been going on about 3 days, relatively constant, 4 out of 10 in nature with no radiation. States she does have a problem with heartburn but usually feels like it is burning much higher up in your throat. Denies any family history of cardiac issues, strokes or heart attacks at young ages. Denies any recent traumas, travels, illnesses, fevers, shortness of breath, abdominal pain, nausea, vomiting, dysuria, hematuria or blood in the stool. Denies any dyspnea on exertion, orthopnea, PND or edema. Denies any aggravating or alleviating factors. Review of Systems Review of Systems Constitutional: Denies fever or chills [] Eyes: Denies change in visual acuity, redness, or eye pain [] HENT: Denies nasal congestion or sore throat [] Respiratory: Denies cough or shortness of breath [] Cardiovascular: No additional information not addressed in HPI [] GI: Denies abdominal pain, nausea, vomiting, bloody stools or diarrhea [] : Denies dysuria or hematuria [] Musculoskeletal: Denies back pain or joint pain [] Integument: Denies rash or skin lesions [] Neurologic: Denies headache, focal weakness or sensory changes [] Endocrine: Denies polyuria or polydipsia [] All other systems were reviewed and found to be within normal limits, except as documented in this note. Allergies Allergies Allergies Coded Allergies Type Severity Reaction Last Updated Verified diphenhydramine Allergy Unknown 06/24/18 Yes Physical Exam Physical Exam Constitutional: Well developed, well nourished, no acute distress, non-toxic appearance. [] HENT: Normocephalic, atraumatic, bilateral external ears normal, oropharynx moist, no oral exudates, nose normal. [] Eyes: conjunctiva normal, no discharge. [] Cardiovascular: Sinus tachycardia Lungs & Thorax: Bilateral breath sounds clear to auscultation [] Abdomen: Bowel sounds normal, soft, no tenderness, no masses, no pulsatile masses. [] Skin: Warm, dry, no erythema, no rash. [] Back: No tenderness, no CVA tenderness. [] Extremities: No tenderness, no cyanosis, no clubbing, ROM intact, no edema. [] Neurologic: Alert and oriented X 3, normal motor function, normal sensory function, no focal deficits noted. [] Psychologic: Affect normal, judgement normal, mood normal. [] Current Patient Data Vital Signs Vital Signs Date Time Temp Pulse Resp B/P (MAP) Pulse Ox O2 Delivery O2 Flow Rate FiO2 01/24/21 19:10 98.3 102 16 158/90 100 Room Air Lab Results Laboratory Tests Test 01/24/21 19:32 POC Urine HCG, Qualitative hcg negative (Negative) EKG EKG Rate of 102, QRS of 74, QTc of 439, no STEMI [] Radiology/Procedures Radiology/Procedures [] Heart Score C/O Chest Pain: No HEART Score for Chest Pain: HEART Score for Chest Pain Response (Comments) Value History Slighlty/Non-Suspicious 0 ECG Normal 0 Age < 45 0 Risk Factors No Risk Factors 0 Troponin < Normal Limit 0 Total 0 Risk Factors: Risk Factors: DM, Current or recent (<one month) smoker, HTN, HLP, family history of CAD, obesity. Risk Scores: Risk Factors: DM, Current or recent (<one month) smoker, HTN, HLP, family history of CAD, obesity. Course & Med Decision Making Course & Med Decision Making Patient is an otherwise healthy 25-year-old female presents with chest pain Vital signs notable for sinus tachycardia initially and hypertension which both resolved in the ED. Given GI cocktail. EKG noted above with sinus tachycardia, no STEMI otherwise normal. Troponin normal. Chest x-ray normal. Heart score 0. Low risk [place]. PERC negative. Discussed all findings with patient. Advised on symptom management at home. Advised to follow-up in the morning with her primary care physician to discuss ED visit. Gave strict return precautions to the ED. Patient grateful, verbalized understanding agree with plan of discharge Dragon Disclaimer Dragon Disclaimer This electronic medical record was generated, in whole or in part, using a voice recognition dictation system. Departure Departure: Disposition: 01 HOME / SELF CARE / HOMELESS Condition: GOOD Referrals: PCP,UNKNOWN (PCP) EVA STRICKLAND MD Patient Instructions: Chest Pain (Nonspecific), Diet for Gastroesophageal Reflux Disease, Adult Additional Instructions: Thank you for coming into the emergency department tonight and allowing us to take care of you. Please read all the attached information above carefully to go back over things we discussed. Please start an [id number] heartburn medicine. Please follow-up in the morning with your primary care physician to go over your ED visit and set up a follow-up. Please come back with new or concerning symptoms as discussed. THU BANUELOS MD Jan 24, 2021 19:52
--- NOTE | 2021-01-24 19:55 | RAD ---
EXAM: AP View of the chest DATE: 01/24/2021 7:37 PM INDICATION: Reason: chest pain / Spl. Instructions: / History: COMPARISON: No Prior FINDINGS: The heart is not enlarged. Mediastinal and hilar contours are normal. No focal parenchymal airspace opacity. No pleural effusion or pneumothorax. IMPRESSION: 1. No radiographic evidence for acute cardiopulmonary process. Electronically signed by: Héctor Boyle MD (01/24/2021 7:52 PM) RICKI
--- NOTE | 2021-01-24 21:12 | EKG ---
[address] [address] Test Date: 2021-01-24 Test Time: 19:09:44 Pat Name: KELVIN CADE Department: Room: Gender: F [employer] Research Technician: : 1995 Requested By: THU BANUELOS Order Number: [id number] Reading MD: Measurements Intervals [place] Rate: 102 P: 56 SC: 142 QRS: 80 QRSD: 74 T: 19 QT: 334 QTc: 439 Interpretive Statements SINUS TACHYCARDIA OTHERWISE NORMAL ECG RI6.02 No previous ECG available for comparison
== END 2021-01-24 19:56 | disposition home or self-care (01) ==
LOC: ER 19:00
DX: R07.2 Precordial pain (principal); J45.909 Unspecified asthma, uncomplicated; Z88.8 Allergy status to other drugs, medicaments and biological substances
CPT/HCPCS: 36415; 71045; 81025; 84484; 93005; 99285

== ENCOUNTER 2021-02-09 17:28 | Emergency (ER) | payer OTHER ==
[~2021-02-09] VITALS: Ht 170.2 cm; Wt 95.0 kg
[2021-02-09 17:28] VITALS: BP 127/83
--- NOTE | 2021-02-09 17:47 | PHYS DOC ---
Past History Past Medical History: Asthma Past Surgical History: No Surgical History Alcohol Use: None Drug Use: None Adult General Chief Complaint Chief Complaint: KNEE INJURY HPI HPI Patient is a 26-year-old female presenting for right knee pain. Reports it is focal and mostly anterior. States this is been going on for past 2 weeks from what she can recall without any known mechanism of injury, trauma, ingestion, exposure or other known inciting event. She has not taken anything in attempt to make it better. Flexion at near endpoint of range of motion worsens her pain. Pain is dull and mostly anterior, cannot pinpoint exactly where most pain is just states "it just feels like it is in there". She has never had any knee issues in the past. She has been ambulatory for the last 2 weeks. Review of Systems Review of Systems Fourteen body systems of review of systems have been reviewed. See HPI for pertinent positives and negative responses, other angelo all other systems are negative, non-pertinent or non-contributory Allergies Allergies Allergies Coded Allergies Type Severity Reaction Last Updated Verified diphenhydramine Allergy Unknown 06/24/18 Yes Physical Exam Physical Exam Constitutional: Well developed, well nourished, no acute distress, non-toxic appearance. HENT: Normocephalic, atraumatic, bilateral external ears normal, oropharynx moist, no oral exudates, nose normal. Eyes: PERRLA, EOMI, conjunctiva normal, no discharge. Neck: Normal range of motion, no tenderness, supple, no stridor. Cardiovascular: Heart rate regular per monitor Lungs & Thorax: No respiratory distress or accessory muscle use, bilateral chest rise Abdomen: Abdomen soft, non-tender, bowel sounds present in all quadrants, no g uarding or rebound, nonacute abdomen. Skin: Warm, dry, no erythema, no rash. Back: No tenderness, no CVA tenderness. Extremities: No tenderness, no cyanosis, no clubbing, ROM intact, no edema. Unremarkable flexion and extension of right knee, negative valgus and varus stress test, negative anterior and posterior Markie test, negative patellar grind, no tenderness with palpation of medial or lateral joint lines and posterior fibular head. Neurologic: Alert and oriented X 3, grossly normal motor & sensory function, no focal deficits noted. Psychologic: Anxious affect and mood EKG EKG [] Radiology/Procedures Radiology/Procedures [] Heart Score C/O Chest Pain: No Risk Factors: Risk Factors: DM, Current or recent (<one month) smoker, HTN, HLP, family history of CAD, obesity. Risk Scores: Risk Factors: DM, Current or recent (<one month) smoker, HTN, HLP, family h istory of CAD, obesity. Course & Med Decision Making Course & Med Decision Making ABCs unremarkable. Patient with knee pain of unknown etiology for 2 weeks, has not tried anything in attempt to alleviate her pain No concerning red flag signs or symptoms on physical exam indicating need for further diagnostic work-up. Supportive care advised with instructions to follow-up with primary care physician for further outpatient work-up and management as indicated Dragon Disclaimer Dragon Disclaimer This electronic medical record was generated, in whole or in part, using a voice recognition dictation system. Departure Departure: Impression: Primary Impression: Right knee pain Disposition: HOME / SELF CARE / HOMELESS Condition: STABLE Referrals: PCPJENNIFER (PCP) Patient Instructions: Knee Exercises, Generic, SportsMed Additional Instructions: You were seen for musculoskeletal pain. You should return to the ED if you develop worsening pain, fever, numbness, tingling, weakness, or any other new or concerning symptoms. Your pain is most likely due to a knee sprain and/or strain and should improve with ibuprofen and/or Tylenol for pain, stretching, and continued activity. If it does not improve you should follow up with a primary care doctor. There might be indication for outpatient sports medicine and/or physical therapy referrals COLIN FERRER DO Feb 09, 2021 17:47
== END 2021-02-09 18:04 | disposition home or self-care (01) ==
LOC: ER 17:28
DX: M25.561 Pain in right knee (principal); J45.909 Unspecified asthma, uncomplicated; Z88.8 Allergy status to other drugs, medicaments and biological substances
CPT/HCPCS: 99282

== ENCOUNTER → 2021-02-17 | Outpatient (CLI) | payer OTHER ==
[2021-02-09 17:28] VITALS: BP 127/83
--- NOTE | 2021-02-18 08:53 | RAD ---
EXAM: Right knee, 2 views. HISTORY: Pain. COMPARISON: None. FINDINGS: 2 views of the right knee are obtained. There is no fracture, dislocation or subluxation. T here is no joint effusion. IMPRESSION: No acute osseous finding. Electronically signed by: Estella Vale MD (02/18/2021 8:51 AM) [facility]
== END ==
LOC: RAD 10:35
PROVIDERS: ATTEND Physician Assistant Medical
DX: M25.561 Pain in right knee (principal)
CPT/HCPCS: 73560

== ENCOUNTER 2021-03-25 07:59 | Emergency (ER) | payer OTHER ==
[~2021-03-25] VITALS: Ht 170.2 cm; Wt 96.9 kg
--- NOTE | 2021-03-25 08:53 | PHYS DOC ---
Past History Past Medical History: Asthma Past Surgical History: No Surgical History Alcohol Use: None Drug Use: None General Adult EDM: Chief Complaint: VAGINAL BLEEDING HPI: HPI: 26-year-old female presents with excessive vaginal bleeding. The patient stopped her Depo-Provera injections a few months ago. She was on them for 5 y ears. She has not had a regular menstrual cycle since going off of the injection. Today she is having a lot of bleeding and has bled through pads and her underwear. She has never had bleeding like this before. She has had some clots that are smaller than an orange. She denies nausea, vomiting, dizziness, lightheadedness. Review of Systems: Review of Systems: Constitutional: Denies fever or chills Eyes: Denies change in visual acuity HENT: Denies nasal congestion or sore throat Respiratory: Denies cough or shortness of breath Cardiovascular: Denies chest pain or edema GI: Mild abdominal pain. Denies nausea, vomiting, bloody stools or diarrhea : Vaginal bleeding Musculoskeletal: Denies back pain or joint pain Integument: Denies rash Neurologic: Denies headache, focal weakness or sensory changes Endocrine: Denies polyuria or polydipsia Lymphatic: Denies swollen glands Psychiatric: Denies depression or anxiety Allergies: Allergies: Allergies Coded Allergies Type Severity Reaction Last Updated Verified diphenhydramine Allergy Unknown 06/24/18 Yes Physical Exam: PE: Constitutional: Well developed, well nourished, obese, no acute distress, non- toxic appearance. [] HENT: Normocephalic, atraumatic, bilateral external ears normal, oropharynx moist, no oral exudates, nose normal. [] Eyes: PERRLA, EOMI, conjunctiva normal, no discharge. [] Neck: Normal range of motion, no tenderness, supple, no stridor. [] Cardiovascular: Heart rate regular rhythm, no murmur [] Lungs & Thorax: Bilateral breath sounds clear to auscultation [] Abdomen: Bowel sounds normal, soft, no tenderness, no masses, no pulsatile masses. [] Skin: Warm, dry, no erythema, no rash. [] Back: No tenderness, no CVA tenderness. [] Extremities: No tenderness, no cyanosis, no clubbing, ROM intact, no edema. [] Neurologic: Alert and oriented X 3, normal motor function, normal sensory function, no focal deficits noted. [] Psychologic: Affect normal, judgement normal, mood concerned. [] Current Patient Data: Vital Signs: Vital Signs Date Time Temp Pulse Resp B/P (MAP) Pulse Ox O2 Delivery O2 Flow Rate FiO2 03/25/21 08:20 97.9 71 16 138/91 (107) 100 Room Air EKG: EKG: [] Radiology/Procedures: Radiology/Procedures: [] Heart Score: C/O Chest Pain: N/A Risk Factors: Risk Factors: DM, Current or recent (<one month) smoker, HTN, HLP, family hi story of CAD, obesity. Risk Scores: Score 0 - 3: 2.5% MACE over next 6 weeks - Discharge Home Score 4 - 6: 20.3% MACE over next 6 weeks - Admit for Clinical Observation Score 7 - 10: 72.7% MACE over next 6 weeks - Early Invasive Strategies Course & Med Decision Making: Course & Med Decision Making Pertinent Labs and Imaging studies reviewed. (See chart for details) The patient's labs are unremarkable. She appears to just be having a heavy menstrual period due to the varying hormones coming off of control. Have advised that she follow-up with [facility] or primary care as needed. She is stable for discharge at this time. [] Dragon Disclaimer: Rajat Disclaimer: This electronic medical record was generated, in whole or in part, using a voice recognition dictation system. Departure Departure: Impression: Primary Impression: Menorrhagia with irregular cycle Disposition: HOME / SELF CARE / HOMELESS Condition: STABLE Referrals: PCP,NO (PCP) Patient Instructions: Menorrhagia, [id number] GUS RAUSCH DO Mar 25, 2021 08:53
[2021-03-25 09:40] LABS: BASO % 1 % (0-3); EOS # 0.1 x10^3/uL (0.0-0.7); EOS % 1 % (0-3); HEMATOCRIT 39.1 % (36.0-47.0); HEMOGLOBIN 12.5 g/dL (12.0-15.5); LYMPH # 1.3 x10^3/uL (1.0-4.8); LYMPH % 28 % (24-48); MEAN CORPUSCULAR HEMOGLOBIN 26 pg (25-35); MEAN CORPUSCULAR HGB CONC 32 g/dL (31-37); MEAN CORPUSCULAR VOLUME 80 fL (79-100); MONO # 0.3 x10^3/uL (0.0-1.1); MONO % 8 % (0-9); NEUT # 2.8 x10^3uL (1.8-7.7); NEUT % 62 % (31-73); PLATELET COUNT 190 x10^3/uL (140-400); RED CELL DISTRIBUTION WIDTH 14.7 % (11.5-14.5); WHITE BLOOD COUNT 4.5 x10^3/uL (4.0-11.0)
[2021-03-25 09:52] LABS: CALCIUM 9.3 mg/dL (8.5-10.1); CREATININE 0.9 mg/dL (0.6-1.0); GFR 76.9; POTASSIUM 4.6 mmol/L (3.5-5.1)
[2021-03-25 09:59] LABS: ALBUMIN 3.5 g/dL (3.4-5.0); ALBUMIN/GLOBULIN RATIO 0.9 (1.0-1.7); TOTAL BILIRUBIN 0.4 mg/dL (0.2-1.0); TOTAL PROTEIN 7.5 g/dL (6.4-8.2)
[2021-03-25 11:25] VITALS: BP 128/88
[2021-03-25 11:27] LABS: CLARITY,URINE TURBID; COLOR,URINE BROWN
[2021-03-25 11:28] LABS: BACTERIA,URINE 0 /HPF (0-FEW); RBC,URINE TNTC /HPF (0-2); SQUAMOUS EPITHELIAL CELL,UR OCC /LPF
== END 2021-03-25 11:20 | disposition home or self-care (01) ==
LOC: ER 07:59
DX: N92.0 Excessive and frequent menstruation with regular cycle (principal); J45.909 Unspecified asthma, uncomplicated; Z88.8 Allergy status to other drugs, medicaments and biological substances
CPT/HCPCS: 36415; 80053; 81001; 85025; 99283-25

== ENCOUNTER 2021-09-01 07:40 | Emergency (ER) | payer OTHER ==
[~2021-09-01] VITALS: Ht 167.6 cm; Wt 86.4 kg
[2021-09-01 07:54] VITALS: BP 117/75
--- NOTE | 2021-09-01 08:48 | PHYS DOC ---
Past History Past Medical History: Asthma Past Surgical History: Other Additional Past Surgical Histo: tubes in ears Alcohol Use: None Drug Use: None General Adult EDM: Chief Complaint: SORE THROAT HPI: HPI: Patient is a 14-year-old female coming in for sore throat for 1 day. Patient states she is recently had some congestion rhinorrhea. Has had coughing up some mucus. Denies any fevers. Has not had her Covid or influenza vaccines. Review of Systems: Review of Systems: All other systems within normal limits except for as noted in the HPI Allergies: Allergies: Allergies Coded Allergies Type Severity Reaction Last Updated Verified diphenhydramine Allergy Unknown 06/24/18 Yes Physical Exam: PE: Constitutional: Well developed, well nourished, no acute distress, non-toxic appearance. [] HENT: Normocephalic, atraumatic, bilateral external ears normal, nose normal. Mild erythema posterior pharynx, tonsils not enlarged and symmetric, no exudates, uvula midline [] Eyes: PERRLA, conjunctiva normal, no discharge. [] Neck: No rigidity, supple, no stridor. [] Cardiovascular: Regular rate and rhythm, brisk cap refill [] Lungs & Thorax: Non labored symmetric respirations, no tachypnea or respiratory distress [] Abdomen: Soft, nondistended. Skin: Warm, dry, no erythema, no rash. [] Back: Unremarkable Extremities: No deformities, range of motion grossly intact, no lower extremity edema [] Neurologic: Alert and oriented X 3, no focal deficits noted. [] Psychologic: Affect normal, judgement normal, mood normal. [] Current Patient Data: Vital Signs: Vital Signs Date Time Temp Pulse Resp B/P (MAP) Pulse Ox O2 Delivery O2 Flow Rate FiO2 09/01/21 07:54 99.0 80 16 117/75 (89) 98 Room Air EKG: EKG: [] Radiology/Procedures: Radiology/Procedures: [] Heart Score: C/O Chest Pain: No Risk Factors: Risk Factors: DM, Current or recent (<one month) smoker, HTN, HLP, family history of CAD, obesity. Risk Scores: Score 0 - 3: 2.5% MACE over next 6 weeks - Discharge Home Score 4 - 6: 20.3% MACE over next 6 weeks - Admit for Clinical Observation Score 7 - 10: 72.7% MACE over next 6 weeks - Early Invasive Strategies Course & Med Decision Making: Course & Med Decision Making Pertinent Labs and Imaging studies reviewed. (See chart for details) [] Rajat Disclaimer: Rajat Disclaimer: This electronic medical record was generated, in whole or in part, using a voice recognition dictation system. Departure Departure: Impression: Primary Impression: Pharyngitis Disposition: HOME / SELF CARE / HOMELESS Condition: STABLE Referrals: PCP,NO (PCP) Patient Instructions: Viral and Bacterial Pharyngitis, [id number] Additional Instructions: You have bacterial culture swabs pending, will notify if positive. Use [id number] medications such as pain medications and decongestants as needed for symptoms. KELVIN PEREZ MD Sep 01, 2021 08:48
[2021-09-01] MEDS ORDERED: DEXAMETHASONE 4 MG TABLET ONE (08:57)
[2021-09-01] MEDS ORDERED: DEXAMETHASONE 4 MG TABLET PO ONE (09:00)
[2021-09-01] MEDS ORDERED: ACETAMINOPHEN 500 MG TABLET PO ONE (09:00)
[2021-09-01] MEDS ORDERED: PENI500T PO (09:13)
[2021-09-02 19:15] LABS: CHLAMYDIA PROBE Negative (Negative)
== END 2021-09-01 09:30 | disposition home or self-care (01) ==
LOC: ER 07:40
DX: J02.9 Acute pharyngitis, unspecified (principal); J45.909 Unspecified asthma, uncomplicated; Z88.8 Allergy status to other drugs, medicaments and biological substances
CPT/HCPCS: 87070; 87491; 87591; 87880; 99283; J8540

== ENCOUNTER 2021-09-16 03:20 | Emergency (ER) | payer OTHER ==
[~2021-09-16] VITALS: Ht 170.2 cm; Wt 89.0 kg
[~2021-09-16 03:20] MED LIST changes: +PENI500T PO
--- NOTE | 2021-09-16 03:36 | PHYS DOC ---
Past History Past Medical History: Asthma Past Surgical History: Other Additional Past Surgical Histo: tubes in ears Alcohol Use: None Drug Use: None Adult General Chief Complaint Chief Complaint: NAUSEA/VOMITING/DIARRHEA HPI HPI Patient is a otherwise healthy 26-year-old female who presents with a chief complaint of about a day of nausea, vomiting and watery diarrhea with no blood in any. Denies any recent traumas, travels, fevers, chest pain, shortness of breath, abdominal pain, dysuria, hematuria or blood in the stool. Denies any vaginal bleeding, discharge, pain or history of STIs. Review of Systems Review of Systems Review of systems otherwise unremarkable except noted in HPI Current Medications Current Medications Current Medications Medications (Trade) Dose Ordered Sig/Kurtis Start Time Stop Time Status Last Admin Dose Admin Metoclopramide HCl (Reglan Vial) 10 mg 1X ONCE 09/16/21 04:00 09/16/21 04:01 Ondansetron HCl (Zofran Odt) 4 mg 1X ONCE 09/16/21 04:00 09/16/21 04:01 Allergies Allergies Allergies Coded Allergies Type Severity Reaction Last Updated Verified diphenhydramine Allergy Unknown 09/16/21 Yes Physical Exam Physical Exam Constitutional: Well developed, well nourished, no acute distress, non-toxic appearance. [] HENT: Normocephalic, oropharynx moist, no oral exudates, nose normal. [] Eyes: conjunctiva normal, no discharge. [] Neck: Normal range of motion, no tenderness, supple, no stridor. [] Cardiovascular:Heart rate regular rhythm, no murmur [] Lungs & Thorax: No respiratory distress Abdomen: soft, no tenderness, no masses, no pulsatile masses. [] Skin: Warm, dry, no erythema, no rash. [] Back:no CVA tenderness. [] Extremities: No tenderness, ROM intact, no edema. [] Neurologic: Alert and oriented X 3, normal motor function, normal sensory function, no focal deficits noted. [] Psychologic: Affect normal, judgement normal, mood normal. [] EKG EKG [] Radiology/Procedures Radiology/Procedures [] Heart Score C/O Chest Pain: No Risk Factors: Risk Factors: DM, Current or recent (<one month) smoker, HTN, HLP, family history of CAD, obesity. Risk Scores: Risk Factors: DM, Current or recent (<one month) smoker, HTN, HLP, family history of CAD, obesity. Course & Med Decision Making Course & Med Decision Making Patient is a 26-year-old female presents with nausea, vomiting and diarrhea Vital signs . Physical exam noted above. Given medications for symptom control. negative. Urinalysis with hematuria secondary to menstrual cycle. On reassessment patient feeling better and able to take p.o. Given nausea medicine for home. Discussed symptom management for home Advised to follow-up with primary care physician in the morning. Gave return precautions to the ED. Patient grateful, verbalized understanding and agreed with plan of discharge Dragon Disclaimer Dragon Disclaimer This electronic medical record was generated, in whole or in part, using a voice recognition dictation system. Departure Departure: Impression: Primary Impression: Nausea vomiting and diarrhea Disposition: HOME / SELF CARE / HOMELESS Condition: STABLE Referrals: PCP,JENNIFER (PCP) DARRELL HENDRICKSON Patient Instructions: Diarrhea, Nausea and Vomiting Additional Instructions: Fever coming into the emergency department tonight and allowing us to take care of you. Please read the attached information carefully go over things we discussed. Please take your nausea medicine as prescribed over the next 24 hours, every 6 hours to allow intake of fluids. Please stay well-hydrated. Pl ease eat a light clear diet over the next day or 2 as we discussed and advance your diet as tolerated. Please follow-up with your primary care physician to update on ED visit and set up a follow-up visit. Please come back with new or concerning symptoms as we discussed. THU BANUELOS MD Sep 16, 2021 03:36
[2021-09-16] MEDS ORDERED: ONDANSETRON ODT 4 MG TAB.RAPDIS PO ONE (04:00)
[2021-09-16] MEDS ORDERED: METOCLOPRAMIDE HCL 10 MG/2 ML VIAL. IM ONE (04:00)
[2021-09-16 04:11] LABS: BACTERIA,URINE 0 /HPF (0-FEW); CLARITY,URINE HAZY; COLOR,URINE YELLOW; GLUCOSE,URINE NEG (NEG); NITRITE,URINE NEG (NEG); RBC,URINE >40 /HPF (0-2); SQUAMOUS EPITHELIAL CELL,UR MOD /LPF; UROBILINOGEN,URINE 0.2 mg/dL (0.2 mg/dL); WBC,URINE RARE /HPF (0-4)
[2021-09-16] MEDS ORDERED: IBUPROFEN 600 MG TABLET. PO ONE (05:00)
[2021-09-16] MEDS ORDERED: ACETAMINOPHEN 500 MG TABLET PO ONE (05:00)
[2021-09-16] MEDS ORDERED: ONDANSETRON 4MG ODT 4TABLET STARTPACK. PO ONE (05:00)
== END 2021-09-16 04:49 | disposition home or self-care (01) ==
LOC: ER 03:20
DX: R11.2 Nausea with vomiting, unspecified (principal); R19.7 Diarrhea, unspecified; J45.909 Unspecified asthma, uncomplicated; Z88.8 Allergy status to other drugs, medicaments and biological substances
CPT/HCPCS: 81001; 81025; 96372; 99284; J2765; Q0162